=== PATIENT | male | born 1990 | race Caucasian/White ===

== ENCOUNTER 2018-09-12 16:26 | Observation (INO) | payer BC, SELFPAY ==
[2018-09-12] MEDS ORDERED: ONDANSETRON 4 MG/2 ML VIAL ONE (17:05)
[2018-09-12] MEDS ORDERED: NA CHLORIDE 0.9% 1,000 ML ONE ×3 (17:05→19:44)
[2018-09-12] MEDS ORDERED: MORPHINE 4 MG/ML SYR ONE ×2 (17:05→17:27)
[2018-09-12 17:25] LABS: Absolute Lymphocytes (CBC) 0.2 K/uL (0.7-4.9); Absolute Monocytes 1.2 K/uL (0.1-1.3); Absolute Neutrophil 16.8 K/uL (1.8-8.0); Basophils % 0.3 % (0-1.3); Eosinophils % 0.1 % (0-4.4); Hematocrit 53.3 % (39.6-49.0); Lymphocytes % 1.3 % (15.3-44.8); Monocytes % 6.4 % (3.3-12.3); RBC Red Blood Cell Count 5.84 M/uL (4.33-5.43)
[2018-09-12 17:29] LABS: MPV 9.6 fL (7.6-11.3)
[2018-09-12 17:30] LABS: Potassium 4.2 mmol/L (3.5-5.1)
--- NOTE | 2018-09-12 17:46 | RAD REPORT ---
EXAM DESCRIPTION: CT - Stone Protocol - 09/12/2018 5:27 pm CLINICAL HISTORY: Abdominal pain, nausea, vomiting and diarrhea, history of kidney stones COMPARISON: CT study October 2014 TECHNIQUE: Axial 5 mm thick images were obtained without oral or IV contrast. The [id number] span s the entirety of the system including uppermost abdomen and lung bases. All CT scans are performed using dose optimization technique as appropriate and may include automated exposure control or mA/KV adjustment according to patient size. FINDINGS: No hydronephrosis is present and no obstructing ureteral calculi. No suspicious renal mass es. Isodense masses and pyelonephritis are not excluded on a stone protocol CT scan. Contracted urina ry bladder shows no suspicious finding. No significant adrenal finding. Imaged portions of the liver, spleen and pancreas show no suspicious findings on non-contrast imaging . No gallbladder or biliary tree abnormality identified. Large volume of fluid is present dilating the stomach. No gastric wall thickening or mass. The gastri c outlet obstruction is unlikely. Dilation is probably secondary to a gastroparesis. Fluid filled no ndilated small bowel loops are seen distally. Stool and fluid are present in nondilated colon. No col on wall mass or thickening. No hernia, mass or bulky lymphadenopathy noted. No free air, free fluid or inflammatory stranding. No significant bony abnormality. IMPRESSION: Gastroenteritis pattern with fluid filled dilated stomach and prominent fluid-filled sma ll bowel loops. No obstruction, free air or surgically emergent finding. Isodense masses and pyelonephritis are not excluded on stone protocol technique.
--- NOTE | 2018-09-12 17:59 | EDPHYS ---
Physician Documentation [facility] Name: Scott Neely Age: 28 yrs Sex: Male : 1990 Arrival Date: 09/12/2018 Time: 16:27 Bed 19 Private MD: Mayco Ybarra H ED Physician Martín Cosby HPI: 09/12 17:19 This 28 yrs old Male presents to ER via Ambulatory with complaints of kb Abdominal Pain, Back Pain. 17:23 The patient complains of pain in the left flank and right flank. The pain does not kb radiate. Onset: The symptoms/episode began/occurred this morning. Modifying factors: The symptoms are alleviated by nothing. the symptoms are aggravated by palpation/percussion. Associated signs and symptoms: Pertinent positives: diarrhea, nausea, vomiting, Pertinent negatives: dizziness, dysuria, fever, urinary frequency, headache, hematuria, pain radiating to the lower extremities. Severity of pain: At its worst the pain was moderate severe in the emergency department the pain is unchanged. The patient has not experienced similar symptoms in the past. The patient has not recently seen a physician. Historical: - Allergies: 16:48 No Known Allergies; ss - PMHx: 16:48 Kidney stones; ss - PSHx: 16:48 Rhinoplasty; right knee surg; ss - Immunization history:: Adult Immunizations up to date. - Social history:: Smoking status: Patient/guardian denies using tobacco. - Ebola Screening: : Patient denies exposure to infectious person Patient denies travel to an Ebola-affected area in the 21 days before illness onset. ROS: 17:22 Constitutional: Negative for fever, chills, and weight loss, ENT: Negative for injury, kb pain, and discharge, Neck: Negative for injury, pain, and swelling, Cardiovascular: Negative for chest pain, palpitations, and edema, Respiratory: Negative for shortness of breath, cough, wheezing, and pleuritic chest pain, MS/Extremity: Negative for injury and deformity, Skin: Negative for injury, rash, and discoloration, Neuro: Negative for headache, weakness, numbness, tingling, and seizure. 17:22 Abdomen/GI: Positive for abdominal pain, nausea, vomiting, and diarrhea. 17:22 : Positive for flank pain. Exam: 17:22 Constitutional: This is a well developed, well nourished patient who is awake, alert, kb and in no acute distress. Head/Face: Normocephalic, atraumatic. Neck: Trachea midline, no thyromegaly or masses palpated, and no cervical lymphadenopathy. Supple, full range of motion without nuchal rigidity, or vertebral point tenderness. No Meningismus. Chest/axilla: Normal chest wall appearance and motion. Nontender with no deformity. No lesions are appreciated. Cardiovascular: Regular rate and rhythm with a normal S1 and S2. No gallops, murmurs, or rubs. Normal PMI, no JVD. No pulse deficits. Respiratory: Lungs have equal breath sounds bilaterally, clear to auscultation and percussion. No rales, rhonchi or wheezes noted. No increased work of breathing, no retractions or nasal flaring. Skin: Warm, dry with normal turgor. Normal color with no rashes, no lesions, and no evidence of cellulitis. MS/ Extremity: Pulses equal, no cyanosis. Neurovascular intact. Full, normal range of motion. Neuro: Awake and alert, GCS 15, oriented to person, place, time, and situation. Cranial nerves II-XII grossly intact. Motor strength 5/5 in all extremities. Sensory grossly intact. Cerebellar exam normal. Normal gait. 17:22 Abdomen/GI: Inspection: abdomen appears normal, Bowel sounds: normal, in all quadrants, Palpation: soft, in all quadrants, mild abdominal tenderness, in the left upper quadrant. 17:22 Back: CVA tenderness, is noted on the left. Vital Signs: 16:48 BP 129 / 84; Pulse 116; Resp 25; Temp 97.4(TE); Pulse Ox 99% on R/A; Weight 83.91 kg; ss Height 6 ft. 0 in. (182.88 cm); Pain 9/10; 18:12 BP 134 / 81; Pulse 93; Resp 15; Pulse Ox 100% on R/A; ss 19:10 BP 135 / 70; Pulse 90; Resp 17; Temp 98; Pulse Ox 99% ; Pain 6/10; rr5 20:12 BP 118 / 78; Pulse 97; Resp 18; Pulse Ox 98% on R/A; mt 21:19 BP 117 / 72; Pulse 104; Resp 18; Pulse Ox 97% on R/A; rr5 16:48 Body Mass Index 25.09 (83.91 kg, 182.88 cm) ss MDM: 16:52 Patient medically screened. kb 17:22 Data reviewed: vital signs, nurses notes. Data interpreted: Pulse oximetry: on room air kb is 99 %. Interpretation: normal. 17:57 Counseling: I had a detailed discussion with the patient and/or guardian regarding: the kb historical points, exam findings, and any diagnostic results supporting the discharge/admit diagnosis, lab results, radiology results, the need for further work-up and treatment in the hospital. Physician consultation: Tasia Littlejohn MD was contacted at 17:57, regarding admission, to the medical/surgical unit. patient's condition, and will see patient in ED, shortly. 09/12 16:55 Order name: Basic Metabolic Panel kb 09/12 16:55 Order name: CBC with Diff kb 09/12 16:56 Order name: Basic Metabolic Panel; Complete Time: 17:30 EDMS 09/12 16:56 Order name: CBC with Automated Diff EDWV 09/12 18:09 Order name: UDS kb 09/12 20:58 Order name: Urine Dipstick--Ancillary (enter results) em1 09/12 16:55 Order name: CT Stone Protocol; Complete Time: 17:47 kb 09/12 21:14 Order name: CBC Smear Scan EDMS 09/12 16:55 Order name: IV Saline Lock; Complete Time: 17:03 kb 09/12 16:55 Order name: Labs collected and sent; Complete Time: 17:03 kb 09/12 16:55 Order name: Urine Dipstick-Ancillary (obtain specimen); Complete Time: 20:57 kb Administered Medications: 17:00 Drug: NS 0.9% 1000 ml Route: IV; Rate: 1000 ml; Site: right antecubital; ss 18:25 Follow up: IV Status: Completed infusion; IV Intake: 1000ml em 17:00 Drug: Zofran 4 mg Route: IVP; Site: right antecubital; ss 17:17 Follow up: Response: No adverse reaction em 17:03 Drug: morphine 4 mg Route: IVP; Site: right antecubital; ss 17:17 Follow up: Response: No adverse reaction; Pain is unchanged, physician notified em 17:17 Drug: morphine 4 mg Route: IVP; Site: right antecubital; em 18:26 Follow up: Response: No adverse reaction; Pain is decreased em 18:08 Drug: TORadol 30 mg Route: IVP; Site: right antecubital; ss 18:25 Follow up: Response: No adverse reaction; Pain is decreased em 18:30 Drug: NS 0.9% 1000 ml Route: IV; Rate: 1000 ml; Site: right antecubital; em 19:55 Follow up: Response: No adverse reaction; IV Status: Completed infusion; IV Intake: rr5 1000ml 19:56 Drug: NS 0.9% 1000 ml Route: IV; Rate: 125 ml/hr; Site: right antecubital; rr5 21:19 Follow up: IV Status: Infusion continued upon admission; IV Intake: 250ml rr5 Disposition: 09/13 07:42 Co-signature as Attending Physician, Martín Cosby MD I agree with the assessment and kdr plan of care. Disposition: 09/12/18 17:59 Hospitalization ordered by Tasia Littlejohn for Observation. Preliminary diagnosis are Generalized abdominal pain, Nausea and vomiting, Diarrhea, unspecified. - Bed requested for Telemetry/MedSurg (observation). - Status is Observation. rr5 - Condition is Stable. - Problem is new. - Symptoms have improved. UTI on Admission? No Signatures: Dispatcher [employer] EDJade Dick, LANA-C SCOOP OPERATOR-Ckb Martín Cosby MD MD [facility] Yaw Marquis, TANYARD WORKER TANYARD WORKER Kimmie Camargo RN RN Lissette Mcgrath RN RN Juan Ramon Roman, RN RN rr5 Corrections: (The following items were deleted from the chart) 09/12 19:42 17:59 Hospitalization Ordered by Tasia Littlejohn MD for Observation. Preliminary diagnosis cg is Generalized abdominal pain; Nausea and vomiting; Diarrhea, unspecified. Bed requested for Telemetry/MedSurg (observation). Status is Observation. Condition is Stable. Problem is new. Symptoms have improved. UTI on Admission? No. kb 21:33 19:42 09/12/2018 17:59 Hospitalization Ordered by Tasia Littlejohn MD for Observation. rr5 Preliminary diagnosis is Generalized abdominal pain; Nausea and vomiting; Diarrhea, unspecified. Bed requested for Telemetry/MedSurg (observation). Status is Observation. Condition is Stable. Problem is new. Symptoms have improved. UTI on Admission? No. cg
--- NOTE | 2018-09-12 17:59 | ER ---
Nurse's Notes [facility] Name: Scott Neely Age: 28 yrs Sex: Male : 1990 Arrival Date: 09/12/2018 Time: 16:27 Bed 19 Private MD: Mayco Ybarra H Diagnosis: Generalized abdominal pain;Nausea and vomiting;Diarrhea, unspecified Presentation: 09/12 16:46 Presenting complaint: Patient states: N/V/D and low back pain that began this morning. ss Pt reports that this pain feels similar to the last time that he had a kidney stone. Transition of care: patient was not received from another setting of care. Onset of symptoms was September 12, 2018. Risk Assessment: Do you want to hurt yourself or someone else? Patient reports no desire to harm self or others. Initial Sepsis Screen: Does the patient meet any 2 criteria? RR > 20 per min. HR > 90 bpm. Does the patient have a suspected source of infection? No. Patient's initial sepsis screen is negative. Care prior to arrival: None. 16:46 Method Of Arrival: Ambulatory ss 16:46 Acuity: CARMENZA 3 ss Historical: - Allergies: 16:48 No Known Allergies; ss - PMHx: 16:48 Kidney stones; ss - PSHx: 16:48 Rhinoplasty; right knee surg; ss - Immunization history:: Adult Immunizations up to date. - Social history:: Smoking status: Patient/guardian denies using tobacco. - Ebola Screening: : Patient denies exposure to infectious person Patient denies travel to an Ebola-affected area in the 21 days before illness onset. Screenin:00 Abuse screen: Denies threats or abuse. Denies injuries from another. Nutritional ss screening: No deficits noted. Tuberculosis screening: No symptoms or risk factors identified. Never had TB. Fall Risk None identified. Assessment: 17:00 General: Appears distressed, uncomfortable, Behavior is cooperative, restless. Pain: ss Complains of pain in lumbar area, left low back and right low back Pain currently is 9 out of 10 on a pain scale. Quality of pain is described as sharp, Pain began Is continuous. Neuro: Level of Consciousness is awake, alert, obeys commands, Oriented to person, place, time, situation. Cardiovascular: Capillary refill < 3 seconds is brisk in bilateral fingers Patient's skin is warm and dry. Respiratory: Airway is patent is compromised Respiratory effort is even, unlabored, Respiratory pattern is regular, symmetrical. GI: Abdomen is non-distended, Bowel sounds present X 4 quads. Abd is soft and non tender X 4 quads. Reports diarrhea, nausea, vomiting, since this AM. EENT: Nares are clear Oral mucosa is moist. Throat is clear. Derm: Skin is intact, is healthy with good turgor, Skin is dry, Skin is pink, warm \T\ dry. normal. Musculoskeletal: Circulation, motion, and sensation intact. Range of motion: intact in all extremities, Swelling absent. 17:15 Reassessment: request more pain medication, provider notified, new medication orders em received. 18:31 Reassessment: Patient appears in no apparent distress at this time. Patient and/or em family updated on plan of care and expected duration. Pain level reassessed. Patient is alert, oriented x 3, equal unlabored respirations, skin warm/dry/pink. rates pain 4/10 Patient states feeling better. Patient states symptoms have improved. 19:10 General: Appears in no apparent distress. comfortable, Behavior is calm, cooperative, rr5 appropriate for age. Pain: Complains of pain in abdomen Pain does not radiate. Pain currently is 6 out of 10 on a pain scale. Quality of pain is described as aching, Pain began gradually, Is intermittent. 19:10 Neuro: Level of Consciousness is awake, alert, obeys commands, Oriented to person, rr5 place, time, situation. Cardiovascular: Capillary refill < 3 seconds Patient's skin is warm and dry. Respiratory: Airway is patent is compromised Respiratory effort is even, unlabored, Respiratory pattern is regular, symmetrical. GI: Abdomen is round non-distended. : : No signs and/or symptoms were reported regarding the genitourinary system. EENT: Nares are clear Oral mucosa is moist. Derm: Skin is intact, is healthy with good turgor, Skin is dry, Skin is pink, warm \T\ dry. normal. Musculoskeletal: Circulation, motion, and sensation intact. Capillary refill < 3 seconds, Range of motion: intact in all extremities, Swelling absent. 20:30 Reassessment: Patient appears in no apparent distress at this time. complaint of rr5 abdominal pain,asking for pain medication tried to call dr. benjamin not available at this time. medication ordered from [facility] given. Vital Signs: 16:48 BP 129 / 84; Pulse 116; Resp 25; Temp 97.4(TE); Pulse Ox 99% on R/A; Weight 83.91 kg; ss Height 6 ft. 0 in. (182.88 cm); Pain 9/10; 18:12 BP 134 / 81; Pulse 93; Resp 15; Pulse Ox 100% on R/A; ss 19:10 BP 135 / 70; Pulse 90; Resp 17; Temp 98; Pulse Ox 99% ; Pain 6/10; rr5 20:12 BP 118 / 78; Pulse 97; Resp 18; Pulse Ox 98% on R/A; mt 21:19 BP 117 / 72; Pulse 104; Resp 18; Pulse Ox 97% on R/A; rr5 16:48 Body Mass Index 25.09 (83.91 kg, 182.88 cm) ED Course: 16:27 Patient arrived in ED. as 16:27 Mayco Ybarra DO is Private Physician. as 16:47 Triage completed. ss 16:48 Arm band placed on right wrist. ss 16:52 [facility]iva [facility]-C [facility] kb 16:52 Martín Cosby MD is Attending Physician. kb 16:54 Inserted saline lock: 20 gauge in right antecubital area, using aseptic technique. ag Blood collected. 16:57 Yaw Marquis LVN is Primary Nurse. em 17:00 Patient moved to ME. nj 17:00 Patient has correct armband on for positive identification. Bed in low position. Call ss light in reach. Side rails up X 1. Adult w/ patient. Pulse ox on. NIBP on. 17:28 CT Stone Protocol In Process Unspecified. EDMS 17:29 CT completed. Patient tolerated procedure well. Patient moved back from ME. nj 17:59 Tasia Littlejohn MD is Hospitalizing Provider. kb 21:08 Patient admitted, IV remains in place. intact, No redness/swelling at site. rr5 21:09 No provider procedures requiring assistance completed. rr5 Administered Medications: 17:00 Drug: NS 0.9% 1000 ml Route: IV; Rate: 1000 ml; Site: right antecubital; ss 18:25 Follow up: IV Status: Completed infusion; IV Intake: 1000ml em 17:00 Drug: Zofran 4 mg Route: IVP; Site: right antecubital; ss 17:17 Follow up: Response: No adverse reaction em 17:03 Drug: morphine 4 mg Route: IVP; Site: right antecubital; ss 17:17 Follow up: Response: No adverse reaction; Pain is unchanged, physician notified em 17:17 Drug: morphine 4 mg Route: IVP; Site: right antecubital; em 18:26 Follow up: Response: No adverse reaction; Pain is decreased em 18:08 Drug: TORadol 30 mg Route: IVP; Site: right antecubital; ss 18:25 Follow up: Response: No adverse reaction; Pain is decreased em 18:30 Drug: NS 0.9% 1000 ml Route: IV; Rate: 1000 ml; Site: right antecubital; em 19:55 Follow up: Response: No adverse reaction; IV Status: Completed infusion; IV Intake: rr5 1000ml 19:56 Drug: NS 0.9% 1000 ml Route: IV; Rate: 125 ml/hr; Site: right antecubital; rr5 21:19 Follow up: IV Status: Infusion continued upon admission; IV Intake: 250ml rr5 Intake: 18:25 IV: 1000ml; Total: 1000ml. em 19:55 IV: 1000ml; Total: 2000ml. rr5 21:19 IV: 250ml; Total: 2250ml. rr5 Output: 20:30 Urine: 400ml (Voided); Total: 400ml. rr5 Outcome: 17:59 Decision to Hospitalize by Provider. kb 21:16 Admitted to Tele accompanied by tech, via wheelchair, with chart, Report called to kristen rr5 21:16 Condition: stable 21:16 Instructed on the need for admit. 21:33 Patient left the ED. rr5 Signatures: Dispatcher [employer] Jade Martinez, LABORATORY SAMPLE CARRIER-C LABORATORY SAMPLE CARRIER-Yaw Masters, CAMPUS RECRUITING INTERN CAMPUS RECRUITING INTERN Madie Chavez Shelby, RN RN Juan Manuel, Shaila Mccullough, Rajat Han Sarver Juan Ramon Sweeney RN RN rr5
[2018-09-12] MEDS ORDERED: KETOROLAC 30 MG/ML INJ ONE (18:12)
--- NOTE | 2018-09-12 18:44 | P.HP ---
Certification for Inpatient Patient admitted to: Observation With expected LOS: <2 Midnights Practitioner: I am a practitioner with admitting privileges, knowledge of patient current condition, hospital course, and medical plan of care. Services: Services provided to patient in accordance with Admission requirements found in Title 42 Section 412.3 of the Code of Federal Regulations Patient History Date of Service: 09/12/18 Primary Care Provider: Adeline Reason for admission: Bilateral flank pain History of Present Illness: This is a 28 yr old male with hx of nephrolithisis in the past admitted for bilateral flank pain. Per patient, he woke up this morning with abdominal pain and vomiting and diarrhea. He has had 15-18 episodes of non bloody vomiting and about 6-8 episodes of non bloody diarrhea. Last episode of vomiting was this am and last episode of diarrhea was 3 pm today. He also reports excruciating left lower back/flank pain that is now present bilaterally. Rates is 10/10 and states that it feels like it did when he had a kidney stone. He also reports chills this am, though no fever. In the ED, he received 4 mg morphine x 2 prior to [address] a CT scan as he was in that much pain. CT scan was done, which did not show any kidney stones, his WBC count was elevated. He received 2 L fluid bolus in the ED along with IV toradol and zofran. At the time of my exam, he was sitting/laying in bed, could not get comfortable though was not in excruciating pain. He will be admitted for IVF, pain control and repeat labs in the am. He states his abdominal pain has almost resolved, now the only thing bothering him is his flank pain. Allergies No Known Drug Allergies Allergy (Unverified 10/24/14 09:54) Unknown No Known Allergies Allergy (Uncoded 01/25/15 18:20) Unknown Review of Systems General: Chills, As per HPI Eyes: Unremarkable ENT: Unremarkable Respiratory: Unremarkable Cardiovascular: Unremarkable Gastrointestinal: Unremarkable Genitourinary: Unremarkable Musculoskeletal: Back Pain, As per HPI Integumentary: Unremarkable Neurological: Unremarkable Lymphatics: Unremarkable Physical Examination - Physical Exam General: Alert, In no apparent distress, Oriented x3 HEENT: Atraumatic, PERRLA, Mucous membr. moist/pink, EOMI, Sclerae nonicteric Neck: Supple, 2+ carotid pulse no bruit, No LAD, Without JVD or thyroid abnormality Respiratory: Clear to auscultation bilaterally, Normal air movement Cardiovascular: Regular rate/rhythm, Normal S1 S2 Gastrointestinal: Normal bowel sounds, No tenderness Musculoskeletal: Other (+ left CVA tenderness) Integumentary: No rashes Neurological: Normal gait, Normal speech, Normal strength at 5/5 x4 extr, Normal tone, Normal affect Lymphatics: No axilla or inguinal lymphadenopathy - Studies Laboratory Data (last 24 hrs) 09/12/18 16:50: WBC 18.3 H, Hgb 18.3 H, Hct 53.3 H, Plt Count 374 09/12/18 16:50: Sodium 139, Potassium 4.2, BUN 18, Creatinine 1.40 H, Glucose 145 H Assessment and Plan - Plan This is a 28 yr old male with: Bilateral flank pain Abdominal pain Nausea/vomiting Continue IVF Pain control with IV morphine Zofran prn nausea/vomiting monitor via AM labs He is still pending UA and UDS as he states he is unable to urinate at this time. Explained to patient to let nurse know prior to urinating so we could collect a sample. If no symptom improvement, and once urine is collected, will give 1 x IV rocephin, followed by oral bactrim for possible UTI/pyelonephritis? It seems that he may have passed a stone and now the symptoms are clinically improving. DVT prophylaxis: Not needed, encourage ambulation GI prophylaxis: Not needed Diet: Regular Dispo: Admit for OBS overnight. IVF fluids, pain control. Likely discharge home in the next 24 hours. - Advance Directives Does patient have a Living Will: No Does patient have a Durable POA for Healthcare: No
[2018-09-12] MEDS ORDERED: ACETAMINOPHEN 500 MG TAB ONE (20:54)
[2018-09-12 21:13] LABS: Blood Morphology Comment NOT SEEN (NOT SEEN); Platelet Estimate ADEQ; Urine White Blood Cell Casts OK
[2018-09-12 21:20] LABS: Barbiturates NEGATIVE (NEGATIVE); Benzodiazepines NEGATIVE (NEGATIVE); Cocaine NEGATIVE (NEGATIVE); METHAMPHETAM POSITIVE (NEGATIVE); Methadone NEGATIVE (NEGATIVE); Opiates POSITIVE (NEGATIVE); Phencyclidine NEGATIVE (NEGATIVE); THC Cannibis POSITIVE (NEGATIVE)
[2018-09-12] MEDS ORDERED: ACETAMINOPHEN 500 MG TAB PO PRN (21:29)
[2018-09-12] MEDS ORDERED: ONDANSETRON 4 MG/2 ML VIAL IV PRN (21:29)
[2018-09-12] MEDS ORDERED: ALBUTEROL 2.5 MG/3 ML NEB SOL NEB PRN (21:29)
[2018-09-12 21:52] VITALS: BMI 24.7
[2018-09-12 21:53] LABS: Urine Blood NEGATIVE (NEG); Urine Glucose NEGATIVE (NEG); Urine Protein 1+ (NEG); Urine Specific Gravity >1.030 (1.005-1.030)
[2018-09-13] MEDS: MORPHINE 4 MG/ML SYR IV PRN ×2 (00:44→06:31)
[2018-09-13] MEDS: NA CHLORIDE 0.9% 1,000 ML IV SCH ×2 (00:45→06:31)
[2018-09-13 04:09] LABS: Absolute Lymphocytes (CBC) 0.7 K/uL (0.7-4.9); Absolute Neutrophil 8.9 K/uL (1.8-8.0); Basophils % 0.1 % (0-1.3); Eosinophils % 0.4 % (0-4.4); Hematocrit 39.6 % (39.6-49.0); Lymphocytes % 6.2 % (15.3-44.8); MPV 9.2 fL (7.6-11.3); Monocytes % 9.5 % (3.3-12.3); RBC Red Blood Cell Count 4.35 M/uL (4.33-5.43)
[2018-09-13 04:37] LABS: Albumin 3.3 g/dL (3.4-5.0); Bilirubin Total 0.6 mg/dL (0.2-1.0); Potassium 3.8 mmol/L (3.5-5.1); Protein, Total 6.6 g/dL (6.4-8.2)
[2018-09-13 08:12] VITALS: BP 116/59; TEMP 98.9
[2018-09-13] MEDS ORDERED: DEXTROAMPHETAMINE PO SCH (09:00)
[2018-09-13] MEDS ORDERED: AMPHETAMINE PO SCH (09:00)
[2018-09-13 11:16] VITALS: O2SAT 98
--- NOTE | 2018-09-13 14:36 | P.SSS ---
Patient History Date of Service: 09/13/18 Primary Care Provider: Adeline Reason for admission: Bilateral flank pain History of Present Illness: This is a 28 yr old male with hx of nephrolithisis in the past admitted for bilateral flank pain. Per patient, he woke up this morning with abdominal pain and vomiting and diarrhea. He has had 15-18 episodes of non bloody vomiting and about 6-8 episodes of non bloody diarrhea. Last episode of vomiting was this am and last episode of diarrhea was 3 pm today. He also reports excruciating left lower back/flank pain that is now present bilaterally. Rates is 1010 and states that it feels like it did when he had a kidney stone. He also reports chills this am, though no fever. In the ED, he received 4 mg morphine x 2 [address] scan as he was in that much pain. CT scan was done, which did not show any kidney stones, his WBC count was elevated. He received 2 L fluid bolus in the ED along with IV toradol and zofran. At the time of my exam, he was sitting/laying in bed, could not get comfortable though was not in excruciating pain. He will be admitted for IVF, pain control and repeat labs in the am. He states his abdominal pain has almost resolved, now the only thing bothering him is his flank pain. Allergies No Known Drug Allergies Allergy (Verified 09/12/18 22:03) Unknown Home Medications: Dextroamphetamine/Amphetamine [Adderall 20 mg Tablet] 20 mg PO DAILY 09/12/18 - Past Medical/Surgical History Has patient received pneumonia vaccine in the past: No Diabetic: No -: Kidney stones -: ADD/ADHD -: Rhinoplasty -: R. knee sx -: Tonsillectomy - Family History Father -: Heart disease, Stroke Mother -: Lung disease - Social History Smoking Status: Current every day smoker Alcohol use: Yes CD- Drugs: No Caffeine use: Yes Place of Residence: Home Review of Systems As noted Physical Examination - Vital Signs Temperature: 98.9 F Blood Pressure: 116/59 Pulse: 85 Respirations: 18 Pulse Ox (%): 97 - Physical Exam General: Alert, In no apparent distress, Oriented x3 HEENT: Atraumatic, PERRLA, Mucous membr. moist/pink, EOMI, Sclerae nonicteric Neck: Supple, 2+ carotid pulse no bruit, No LAD, Without JVD or thyroid abnormality Respiratory: Clear to auscultation bilaterally, Normal air movement Cardiovascular: Regular rate/rhythm, Normal S1 S2 Gastrointestinal: Normal bowel sounds, No tenderness Musculoskeletal: No tenderness Integumentary: No rashes Neurological: Normal gait, Normal speech, Normal strength at 5/5 x4 extr, Normal tone, Normal affect Lymphatics: No axilla or inguinal lymphadenopathy - Studies Laboratory Data (last 24 hrs) 09/12/18 16:50: WBC 18.3 H, Hgb 18.3 H, Hct 53.3 H, Plt Count 374 09/12/18 16:50: Sodium 139, Potassium 4.2, BUN 18, Creatinine 1.40 H, Glucose 145 H - Diagnosis (Problem(s)) (1) Bilateral flank pain Onset Date: 09/13/18 Status: Acute (2) Current tobacco use Onset Date: 09/13/18 Status: Acute (3) Marijuana use Onset Date: 09/13/18 Status: Acute Treatment Summary: This is a 28 yr old male with: Bilateral flank pain Abdominal pain Nausea/vomiting He was admitted for observation overnight. IV fluids were started, pain was controlled with IV morphine. He was given Zofran as needed for nausea and vomiting. His urine was collected for urinalysis and UDS, positive for marijuana. It seems that he may have passed a stone and now the symptoms are clinically improving. Discussed with patient regarding cessation of marijuana use, smoking cessation. A.m. labs normal, he is hemodynamically stable, pain has resolved. At the time of discharge, patient tolerating oral diet and ambulating normally. Symptoms/diagnosis explained to patient, all questions answered and patient verbalized understanding. - Disposition Disposition: ROUTINE DISCHARGE Condition: GOOD Consultations: None Patient Discharge Instructions: Please follow up with your primary care physician in 1 week Diet: Regular Activity: Ad josé Physician Review: Patient Assessed, Agree with Above Assessment and Plan Time Spent Managing Pts Care (In Minutes): 45
== END 2018-09-13 11:40 | disposition home or self-care (01) ==
LOC: ER 16:26 → ERHOLD 18:30 → 4TH 21:18
PROVIDERS: ADMIT Family Medicine; ATTEND Family Medicine
DX: R10.9 Unspecified abdominal pain (principal); R11.2 Nausea with vomiting, unspecified; F17.210 Nicotine dependence, cigarettes, uncomplicated; F12.90 Cannabis use, unspecified, uncomplicated; Z87.442 Personal history of urinary calculi
CPT/HCPCS: 36415; 74176; 76377; 80048; 80053; 80307; 81003; 85025; 94760; 96361; 96374; 96375; 99285; G0378; J2405; J7030